=== PATIENT | female | born 1940 | race Caucasian/White ===

== ENCOUNTER → 2017-08-30 | Outpatient (CLI) | payer MEDICARE ==
[~2017-08-30] MED LIST: ALBU8.5H8 IH; APIX5TAB PO; ATEN25TA PO; AZEL137S11 NS; BIMA12.5OS OD; BRIM15OS OD; BUDE10.2 IH; CHOL100018 PO; CYAN10007 IJ; CYCL30DR OP; EZET10 PO; GLIM1TAB2 PO; KRIL1CAP22 PO; LEVA0.6319 IH; LIOT25TA7 PO; METF500T6 PO; MONT10TA21 PO; PANT40TA25 PO; THIA100T8 PO; THYROXINE PO; UBIQ75CA PO; VITA150T PO; WHEA1POW2 PO
[2017-08-30 13:23] LABS: CREATININE 1.1 mg/dL (0.5-1.5)
== END | disposition home or self-care (01) ==
LOC: LAB 11:55
PROVIDERS: ATTEND Internal Medicine
DX: I10 Essential (primary) hypertension (principal); J44.9 Chronic obstructive pulmonary disease, unspecified
CPT/HCPCS: 36415; 82565; 84520

== ENCOUNTER → 2017-09-02 | Outpatient (CLI) | payer MEDICARE ==
[~2017-09-02] MED LIST changes: +ISOVUE-370 50ML VIAL IV ONE
== END | disposition home or self-care (01) ==
LOC: OIH 09:36
PROVIDERS: ATTEND Internal Medicine
DX: I10 Essential (primary) hypertension (principal); J84.112 Idiopathic pulmonary fibrosis; J44.9 Chronic obstructive pulmonary disease, unspecified
CPT/HCPCS: 71260; Q9967

== ENCOUNTER → 2017-10-26 | Outpatient (CLI) | payer MEDICARE ==
[~2017-10-26] MED LIST changes: -ISOVUE-370 50ML VIAL IV ONE
== END | disposition home or self-care (01) ==
LOC: SHCH 12:30
PROVIDERS: ATTEND Internal Medicine Cardiovascular Disease
DX: I08.1 Rheumatic disorders of both mitral and tricuspid valves (principal); I25.10 Atherosclerotic heart disease of native coronary artery without angina pectoris; I48.0 Paroxysmal atrial fibrillation
CPT/HCPCS: 93306

== ENCOUNTER → 2018-01-13 | Outpatient (CLI) | payer MEDICARE ==
[~2018-01-13] MED LIST changes: -THIA100T8 PO; +THIA100T91 PO
== END | disposition home or self-care (01) ==
LOC: RAH 13:41
PROVIDERS: ATTEND Internal Medicine
DX: J44.9 Chronic obstructive pulmonary disease, unspecified (principal); I10 Essential (primary) hypertension; J84.10 Pulmonary fibrosis, unspecified
CPT/HCPCS: 71250

== ENCOUNTER → 2018-11-13 | Outpatient (CLI) | payer MEDICARE ==
[~2018-11-13] MED LIST changes: +ALLO100T PO; +ATEN-189 PO; +COLC0.6T70 PO; +DORZ1DRO7 OP; +FISH1CAP50 PO; +FURO-151 PO; +IBUP-2077 PO; +IOHEXOL 350 MG/ML 100ML INFUS..BTL IV ONE; +METF-444 PO; -METF500T6 PO
== END | disposition home or self-care (01) ==
LOC: RAH 09:54
PROVIDERS: ATTEND Internal Medicine
DX: K86.2 Cyst of pancreas (principal)
CPT/HCPCS: 74178; Q9967

== ENCOUNTER → 2018-12-12 | Outpatient (CLI) | payer MEDICARE ==
[~2018-12-12] MED LIST changes: -IOHEXOL 350 MG/ML 100ML INFUS..BTL IV ONE
== END | disposition home or self-care (01) ==
LOC: SHCH 09:08
PROVIDERS: ATTEND Internal Medicine Cardiovascular Disease
DX: I70.0 Atherosclerosis of aorta (principal); I71.4 Abdominal aortic aneurysm, without rupture
CPT/HCPCS: 93978

== ENCOUNTER 2018-12-29 07:45 | Day surgery (SDC) | payer MEDICARE ==
[~2018-12-29] VITALS: Ht 154.9 cm; Wt 59.9 kg
[2018-12-29] VITALS (8 sets, daily range): BP systolic 74–139; BP diastolic 28–74
[~2018-12-29 07:45] MED LIST changes: -AZEL137S11 NS; -BRIM15OS OD; -CHOL100018 PO; -COLC0.6T70 PO; -CYAN10007 IJ; -IBUP-2077 PO; -LIOT25TA7 PO; +SODIUM CHLORIDE 0.9% 1000ML 1,000 ML IV ONE; -THYROXINE PO; -UBIQ75CA PO
[2018-12-29] MEDS ORDERED: PROPOFOL 1000 MG/100 ML 100 ML IV ONE (09:53)
[2018-12-29] MEDS ORDERED: LIDOCAINE HCL-MPF 2% 5ML VIAL ONE (09:54)
[2018-12-29] MEDS ORDERED: GLYCOPYRROLATE 0.2 MG/ML 5 ML VIAL ONE (09:54)
== END 2018-12-29 11:00 | disposition home or self-care (01) ==
LOC: ENDO 07:45 → DAH 07:45 → ENDO 11:00
PROVIDERS: ATTEND Internal Medicine
DX: K31.89 Other diseases of stomach and duodenum (principal); K86.2 Cyst of pancreas; E03.9 Hypothyroidism, unspecified; M81.0 Age-related osteoporosis without current pathological fracture; E78.5 Hyperlipidemia, unspecified; I10 Essential (primary) hypertension; F32.9 Major depressive disorder, single episode, unspecified; Z86.010 Personal history of colon polyps; E11.9 Type 2 diabetes mellitus without complications; K21.9 Gastro-esophageal reflux disease without esophagitis; J44.9 Chronic obstructive pulmonary disease, unspecified; Z80.0 Family history of malignant neoplasm of digestive organs; Z79.84 Long term (current) use of oral hypoglycemic drugs; Z79.899 Other long term (current) drug therapy; Z79.01 Long term (current) use of anticoagulants; Z90.710 Acquired absence of both cervix and uterus; Z98.890 Other specified postprocedural states; Z88.8 Allergy status to other drugs, medicaments and biological substances; I48.91 Unspecified atrial fibrillation
CPT/HCPCS: 43237; 82948; 93005; A4606; J2704; J3490 ×2; J7030; 43231

== ENCOUNTER 2019-09-18 06:45 | Day surgery (SDC) | payer MEDICARE ==
[~2019-09-18] VITALS: Ht 160 cm; Wt 60.3 kg
[~2019-09-18 06:45] MED LIST changes: +APIX2.5T PO; -APIX5TAB PO; +ASPI-555 PO; -ATEN-189 PO; -EZET10 PO; +FAMO40TA7 PO; -FURO-151 PO; -GLIM1TAB2 PO; +LEVO100T12 PO; +LIPA1CAP18 PO; -PANT40TA25 PO; -THIA100T91 PO; -VITA150T PO; +VITAMIN B12 SHOT IM; -WHEA1POW2 PO
[2019-09-18] MEDS ORDERED: LIDOCAINE HCL 2% 20ML ONE (09:09)
[2019-09-18] MEDS ORDERED: PROPOFOL 10 MG/ML 20ML VIAL IV ONE ×2 (09:09)
[2019-09-18] MEDS ORDERED: LEVOFLOXACIN 750 MG/D5W 150 ML 150 ML IV SCH (09:30)
[2019-09-18 09:45] VITALS: BP 162/52
[2019-09-18] MEDS ORDERED: ZOSYN 3.375GM+NS 50ML 50 ML IV SCH (09:45)
[2019-09-18 09:50] VITALS: BP 112/48
[2019-09-18 09:55] VITALS: BP 113/54
[2019-09-18 10:00] VITALS: BP 116/75
[2019-09-18 10:05] VITALS: BP 134/80
[2019-09-18 10:10] VITALS: BP 135/72
--- NOTE | 2019-09-18 10:30 | NUR ---
ERNESTON FINISHED NO COMPLICATIONS.
--- NOTE | 2019-09-18 10:36 | NUR ---
PT LEFT VIA WHEELCHAIR IN PVT CAR WITH FAMILY MEMBER, D/C AND RX SCRIPT GIVEN TO FAMILY MEMBER. V/S STABLE NO COMPLICATIONS UPON D.C
== END 2019-09-18 10:36 | disposition home or self-care (01) ==
LOC: DAH 06:45 → ENDO 06:45
PROVIDERS: ATTEND Internal Medicine
DX: K86.2 Cyst of pancreas (principal); E03.9 Hypothyroidism, unspecified; M81.0 Age-related osteoporosis without current pathological fracture; E78.5 Hyperlipidemia, unspecified; I10 Essential (primary) hypertension; F32.9 Major depressive disorder, single episode, unspecified; E11.9 Type 2 diabetes mellitus without complications; K21.9 Gastro-esophageal reflux disease without esophagitis; J44.9 Chronic obstructive pulmonary disease, unspecified; Z88.8 Allergy status to other drugs, medicaments and biological substances; Z88.1 Allergy status to other antibiotic agents; Z79.899 Other long term (current) drug therapy; Z79.82 Long term (current) use of aspirin; Z79.01 Long term (current) use of anticoagulants; Z86.010 Personal history of colon polyps; Z90.710 Acquired absence of both cervix and uterus; Z90.49 Acquired absence of other specified parts of digestive tract; Z98.890 Other specified postprocedural states; Z72.89 Other problems related to lifestyle; Z82.49 Family history of ischemic heart disease and other diseases of the circulatory system; Z82.3 Family history of stroke; Z83.3 Family history of diabetes mellitus; Z82.5 Family history of asthma and other chronic lower respiratory diseases; Z80.0 Family history of malignant neoplasm of digestive organs
CPT/HCPCS: 43238; 82948 ×2; 88108; 88162; A4215 ×3; A4221 ×2; A4222 ×2; A4223 ×2; A4606 ×2; A4620 ×2; A4663 ×2; J2543; J2704 ×2; J3490; J7030

== ENCOUNTER → 2020-10-07 | Outpatient (CLI) | payer MEDICARE ==
[~2020-10-07] MED LIST changes: -ASPI-555 PO; +ASPI-556 PO; -SODIUM CHLORIDE 0.9% 1000ML 1,000 ML IV ONE
== END | disposition home or self-care (01) ==
LOC: SHCH 07:46
PROVIDERS: ATTEND Internal Medicine Cardiovascular Disease
DX: I71.4 Abdominal aortic aneurysm, without rupture (principal)
CPT/HCPCS: 93978

== ENCOUNTER → 2021-02-12 | Outpatient (CLI) | payer MEDICARE | END | disposition home or self-care (01) | LOC: SHCH 07:43 | PROVIDERS: ATTEND Internal Medicine Cardiovascular Disease | DX: I71.4 Abdominal aortic aneurysm, without rupture (principal); I70.0 Atherosclerosis of aorta | CPT/HCPCS: 93978 ==

== ENCOUNTER 2022-06-19 13:27 | Emergency (ER) | payer MEDICARE ==
[~2022-06-19] VITALS: Ht 157.5 cm; Wt 65.8 kg
[2022-06-19 13:44] LABS: BASOPHILS % (AUTO) 0.9 % (0.0-5.0); EOSINOPHILS % (AUTO) 2.6 % (0.0-8.0); HEMATOCRIT 43.5 % (36-48); LYMPHOCYTES % (AUTO) 54.4 % (21.0-51.0); MEAN CORPUSCULAR HEMOGLOBIN 30.3 pg (27.0-33.0); MEAN CORPUSCULAR HGB CONC 33.1 g/dL (32.0-36.0); MEAN CORPUSCULAR VOLUME 91.6 fL (79-99); MONOCYTES % (AUTO) 5.8 % (3.0-13.0); NEUTROPHILS % (AUTO) 36.1 % (40.0-77.0); PLATELET COUNT (AUTO) 308 K/uL (130-400); RED BLOOD CELL COUNT(AUTO) 4.75 MIL/uL (4.00-5.50); RED CELL DISTRIBUTION WIDTH 14.1 % (11.0-15.5); WHITE BLOOD COUNT (AUTO) 9.8 K/uL (4.8-10.8)
[2022-06-19 13:52] LABS: CREATININE 1.2 mg/dL (0.5-1.5); POTASSIUM 4.3 mmol/L (3.5-5.1)
[2022-06-19 13:56] LABS: ALBUMIN 3.7 g/dL (3.5-5.0); TOTAL PROTEIN, SERUM 8.7 g/dL (6.0-8.3)
[2022-06-19 14:03] LABS: INR 0.98 (0.85-1.15); PROTHROMBIN TIME 10.7 SEC (9.6-11.6)
[2022-06-19 14:04] LABS: PARTIAL THROMBOPLASTIN TIME 30.8 SEC (26.3-35.5)
[2022-06-19 14:12] LABS: B-TYPE NATRIURETIC PEPTIDE 33 pg/mL (0-100)
[2022-06-19] MEDS ORDERED: IOHEXOL 350 MG/ML 100ML INFUS..BTL IV ONE (15:58)
[2022-06-19] MEDS ORDERED: APIXABAN 2.5 MG TABLET PO ONE (16:00)
[2022-06-19] MEDS ORDERED: ATOR40TA69 PO (16:08)
[2022-06-19] MEDS ORDERED: GABA-529 PO (16:08)
[2022-06-19 16:48] LABS: APPEARANCE,URINE CLEAR (CLEAR); BILIRUBIN,URINE NEGATIVE (NEGATIVE); COLOR,URINE COLORLESS (YELLOW); GLUCOSE, URINE (UA) NEGATIVE (NEGATIVE); KETONES,URINE NEGATIVE (NEGATIVE); LEUKOCYTE ESTERASE ,URINE 75 Leu/uL (NEGATIVE); NITRATE,URINE NEGATIVE (NEGATIVE); PH,URINE 7.5 (5.0-8.0); PROTEIN,URINE NEGATIVE (NEGATIVE); UROBILINOGEN,URINE 0.2 mg/dL (0.2-1.0)
[2022-06-19 17:02] LABS: SQUAMOUS EPITHELIAL CELL,UR RARE /HPF (0-2)
[2022-06-19 17:03] LABS: BACTERIA,URINE RARE /HPF (None Seen)
[2022-06-19 17:47] VITALS: BP 146/59
[2022-06-19] MEDS ORDERED: CEFTRIAXONE 1G VIAL IVP ONE (18:00)
== END 2022-06-19 18:47 | disposition home or self-care (01) ==
LOC: EDH 13:27
DX: I63.9 Cerebral infarction, unspecified (principal); N39.0 Urinary tract infection, site not specified; E11.9 Type 2 diabetes mellitus without complications; I10 Essential (primary) hypertension; Z20.822 Contact with and (suspected) exposure to COVID-19; Z88.8 Allergy status to other drugs, medicaments and biological substances; Z88.1 Allergy status to other antibiotic agents; Z79.899 Other long term (current) drug therapy; Z79.82 Long term (current) use of aspirin; Z88.2 Allergy status to sulfonamides; Z79.84 Long term (current) use of oral hypoglycemic drugs
CPT/HCPCS: 99285; 70496; 96374; 71045; 87635; 82550; 83721; 84484; 80053; 83880; 85025; 85610; 85730; 87077; 87088; 87186; 82948; 81001; 36415; 70498; 93005; 70450; C9803; J0696; Q9967

== ENCOUNTER 2022-08-24 15:23 | Emergency (ER) | payer MEDICARE ==
[~2022-08-24] VITALS: Ht 157.5 cm; Wt 53.1 kg
[~2022-08-24 15:23] MED LIST changes: +ATOR40TA69 PO; +GABA-529 PO; +MONT-47 PO; -MONT10TA21 PO
[2022-08-24 16:17] LABS: HEMATOCRIT 41.6 % (36-48); MEAN CORPUSCULAR HEMOGLOBIN 30.7 pg (27.0-33.0); MEAN CORPUSCULAR HGB CONC 33.7 g/dL (32.0-36.0); MEAN CORPUSCULAR VOLUME 91.2 fL (79-99); PLATELET COUNT (AUTO) 321 K/uL (130-400); RED BLOOD CELL COUNT(AUTO) 4.56 MIL/uL (4.00-5.50); RED CELL DISTRIBUTION WIDTH 15.4 % (11.0-15.5); WHITE BLOOD COUNT (AUTO) 15.1 K/uL (4.8-10.8)
[2022-08-24 16:30] LABS: CREATININE 1.2 mg/dL (0.5-1.5)
[2022-08-24] MEDS ORDERED: 0.9%NACL 1000ML 1,000 ML IV ONE (16:30)
[2022-08-24 16:37] LABS: ALBUMIN 3.1 g/dL (3.5-5.0); TOTAL PROTEIN, SERUM 8.4 g/dL (6.0-8.3)
[2022-08-24 18:28] LABS: APPEARANCE,URINE CLEAR (CLEAR); BILIRUBIN,URINE NEGATIVE (NEGATIVE); COLOR,URINE YELLOW (YELLOW); GLUCOSE, URINE (UA) NEGATIVE (NEGATIVE); KETONES,URINE NEGATIVE (NEGATIVE); LEUKOCYTE ESTERASE ,URINE NEGATIVE Leu/uL (NEGATIVE); NITRATE,URINE NEGATIVE (NEGATIVE); OCCULT BLOOD,URINE NEGATIVE (NEGATIVE); PROTEIN,URINE NEGATIVE (NEGATIVE); UROBILINOGEN,URINE 0.2 mg/dL (0.2-1.0)
[2022-08-24 18:40] LABS: BACTERIA,URINE None Seen /HPF (None Seen); RBC,URINE 0-1 /HPF (0-1); WBC,URINE None Seen /HPF (0-1)
[2022-08-24 18:41] LABS: SQUAMOUS EPITHELIAL CELL,UR Rare /HPF (0-2)
[2022-08-24 21:18] LABS: BASOPHILS % (AUTO) 0.8 % (0.0-5.0); EOSINOPHILS % (AUTO) 0.1 % (0.0-8.0); MONOCYTES % (AUTO) 7.1 % (3.0-13.0); NEUTROPHILS % (AUTO) 70.5 % (40.0-77.0)
[2022-08-24] MEDS ORDERED: ONDANSETRON 4MG INJ IVP ONE (21:30)
[2022-08-24] MEDS ORDERED: MORPHINE 2 MG SYG IVP ONE (21:30)
[2022-08-24] MEDS ORDERED: IPRATROPIUM/ALBUTEROL SULFATE 3 ML SOLUTION IH ONE (21:30)
[2022-08-24] MEDS ORDERED: CEFTRIAXONE 1G VIAL IVP ONE (21:30)
[2022-08-24] MEDS ORDERED: AZITHROMYCIN 250 MG TABLET PO ONE (21:30)
[2022-08-24] MEDS ORDERED: AZIT500T2 PO (21:47)
[2022-08-24] MEDS ORDERED: IBUP-1493 PO (21:47)
[2022-08-24] MEDS ORDERED: PRED20TA3 PO (21:47)
[2022-08-24] MEDS ORDERED: ALBU90AE2 IH (21:48)
[2022-08-24] MEDS ORDERED: IPRATROPIUM 0.5 MG/2.5 ML INH IH ONE (22:00)
[2022-08-24] MEDS ORDERED: ALBUTEROL 0.083% 2.5 MG/3 ML INH IH ONE (22:00)
[2022-08-24 22:38] VITALS: BP 117/56
== END 2022-08-24 23:12 | disposition home or self-care (01) ==
LOC: EDH 15:23
DX: M12.531 Traumatic arthropathy, right wrist (principal); J44.1 Chronic obstructive pulmonary disease with (acute) exacerbation; R50.9 Fever, unspecified; E11.9 Type 2 diabetes mellitus without complications; I11.9 Hypertensive heart disease without heart failure; E86.0 Dehydration; I95.9 Hypotension, unspecified; Z90.710 Acquired absence of both cervix and uterus; Z79.899 Other long term (current) drug therapy; Z20.822 Contact with and (suspected) exposure to COVID-19; Z88.1 Allergy status to other antibiotic agents; Z88.2 Allergy status to sulfonamides; Z88.8 Allergy status to other drugs, medicaments and biological substances; Z79.01 Long term (current) use of anticoagulants; Z79.51 Long term (current) use of inhaled steroids; Z79.82 Long term (current) use of aspirin; Z79.84 Long term (current) use of oral hypoglycemic drugs; Z95.1 Presence of aortocoronary bypass graft; W06.XXXA Fall from bed, initial encounter; Y93.89 Activity, other specified; Y92.89 Other specified places as the place of occurrence of the external cause; Y99.8 Other external cause status
CPT/HCPCS: 99285; 80053; 85025; 87040 ×2; 87880; 87804 ×2; 83605; 81001; 36415; 87635; 71046; 73030; 73110; 96374; 96361; 96375; 29125; 94640; C9803; J7030; J0696; J2405